=== PATIENT | female | born 1950 | race Caucasian/White ===

== ENCOUNTER 2017-02-04 10:23 | Day surgery (SDC) | payer MEDICARE ==
[2017-02-04] MEDS ORDERED: INFLIXIMAB IVPB SCH ×2 (11:00)
[2017-02-04] MEDS ORDERED: SODIUM CHLORIDE IVPB SCH ×2 (11:00)
[2017-02-04] MEDS ORDERED: ADMIXTURE FEE IVPB SCH ×2 (11:00)
[2017-02-04] MEDS ORDERED: diphenhydrAMINE 25 MG CAP PO SCH (11:00)
[2017-02-04] MEDS ORDERED: Acetaminophen 500 MG TAB PO SCH (11:00)
[2017-02-04 11:19] VITALS: TEMP 98.2
[2017-02-04] MEDS ORDERED: Sodium Chloride 0.9% 20 ML ONE (11:59)
[2017-02-04 14:02] VITALS: BP 136/63
== END 2017-02-04 14:46 | disposition home or self-care (01) ==
LOC: ONC/OP 10:23
PROVIDERS: ATTEND Internal Medicine Gastroenterology
DX: K51.90 Ulcerative colitis, unspecified, without complications (principal)
CPT/HCPCS: 96413; 96415; A4216; J1745; J7050

== ENCOUNTER 2017-04-22 10:55 | Day surgery (SDC) | payer MEDICARE ==
[2017-04-22] MEDS ORDERED: Sodium Chloride 0.9% 20 ML ONE (11:07)
[2017-04-22] MEDS ORDERED: Sodium Chloride 0.9% 1,000 ML IV SCH (11:15)
[2017-04-22] MEDS ORDERED: diphenhydrAMINE 25 MG CAP PO SCH (11:15)
[2017-04-22] MEDS ORDERED: Acetaminophen 500 MG TAB PO SCH (11:15)
[2017-04-22] MEDS ORDERED: diphenhydrAMINE 50 MG/ML VIAL IVP PRN (11:17)
[2017-04-22] MEDS ORDERED: Acetaminophen 500 MG TAB PO PRN (11:18)
[2017-04-22] MEDS ORDERED: SODIUM CHLORIDE IVPB SCH (11:30)
[2017-04-22] MEDS ORDERED: INFLIXIMAB IVPB SCH (11:30)
[2017-04-22] MEDS ORDERED: ADMIXTURE FEE IVPB SCH (11:30)
== END 2017-04-22 15:34 | disposition home or self-care (01) ==
LOC: ONC/OP 10:55
PROVIDERS: ATTEND Internal Medicine Gastroenterology
DX: K51.90 Ulcerative colitis, unspecified, without complications (principal); E11.9 Type 2 diabetes mellitus without complications
CPT/HCPCS: 96413; 96415; A4216; J1745; J7050

== ENCOUNTER 2017-06-24 10:35 | Day surgery (SDC) | payer MEDICARE ==
[2017-06-24] MEDS ORDERED: Acetaminophen 500 MG TAB PO PRN (10:49)
[2017-06-24] MEDS ORDERED: diphenhydrAMINE 50 MG/ML VIAL IVP PRN (10:50)
[2017-06-24] MEDS ORDERED: Sodium Chloride 0.9% 30 ML ONE (10:53)
[2017-06-24] MEDS ORDERED: diphenhydrAMINE 25 MG CAP PO SCH (11:00)
[2017-06-24] MEDS ORDERED: Acetaminophen 500 MG TAB PO SCH (11:00)
[2017-06-24] MEDS ORDERED: Sodium Chloride 0.9% 1,000 ML IV SCH (11:00)
[2017-06-24] MEDS ORDERED: SODIUM CHLORIDE 0.9% IVPB SCH (11:15)
[2017-06-24] MEDS ORDERED: INFLIXIMAB IVPB SCH (11:15)
[2017-06-24 11:36] VITALS: BP 134/62; TEMP 98.7
== END 2017-06-24 14:03 | disposition home or self-care (01) ==
LOC: ONC/OP 10:35
PROVIDERS: ATTEND Internal Medicine Gastroenterology
DX: K51.90 Ulcerative colitis, unspecified, without complications (principal); E11.9 Type 2 diabetes mellitus without complications; F32.9 Major depressive disorder, single episode, unspecified; K21.9 Gastro-esophageal reflux disease without esophagitis; Z98.890 Other specified postprocedural states
CPT/HCPCS: 96413; 96415; A4216; J1745; J7050

== ENCOUNTER 2017-08-19 10:20 | Day surgery (SDC) | payer MEDICARE ==
[2017-08-19] MEDS ORDERED: Acetaminophen 500 MG TAB PO PRN (10:50)
[2017-08-19] MEDS ORDERED: diphenhydrAMINE 50 MG/ML VIAL IVP PRN (10:50)
[2017-08-19] MEDS ORDERED: diphenhydrAMINE 50 MG/ML VIAL IVP SCH (11:00)
[2017-08-19] MEDS ORDERED: Sodium Chloride 0.9% 1,000 ML IV SCH (11:00)
[2017-08-19] MEDS ORDERED: Acetaminophen 500 MG TAB PO SCH (11:00)
[2017-08-19] MEDS ORDERED: INFLIXIMAB IVPB SCH ×2 (11:00→11:15)
[2017-08-19] MEDS ORDERED: SODIUM CHLORIDE 0.9% IVPB SCH ×2 (11:00→11:15)
[2017-08-19] MEDS ORDERED: diphenhydrAMINE 25 MG CAP PO SCH (11:00)
[2017-08-19 18:30] VITALS: BP 148/68; TEMP 97.9
[2017-08-19] MEDS ORDERED: Sodium Chloride 0.9% 40 ML ONE (18:57)
== END 2017-08-19 19:03 | disposition home or self-care (01) ==
LOC: ONC/OP 10:20
PROVIDERS: ATTEND Internal Medicine Gastroenterology
DX: K51.50 Left sided colitis without complications (principal)
CPT/HCPCS: 96413; 96415; A4216; J1745; J7050

== ENCOUNTER 2017-10-10 10:34 | Day surgery (SDC) | payer MEDICARE ==
[2017-10-10] MEDS ORDERED: diphenhydrAMINE 50 MG/ML VIAL IVP PRN (10:50)
[2017-10-10] MEDS ORDERED: Acetaminophen 500 MG TAB PO PRN (10:51)
[2017-10-10] MEDS ORDERED: Acetaminophen 500 MG TAB PO SCH (11:00)
[2017-10-10] MEDS ORDERED: diphenhydrAMINE 25 MG CAP PO SCH (11:00)
[2017-10-10] MEDS ORDERED: diphenhydrAMINE 50 MG/ML VIAL IVP SCH (11:00)
[2017-10-10] MEDS ORDERED: Sodium Chloride 0.9% 1,000 ML IV SCH (11:00)
[2017-10-10] MEDS ORDERED: INFLIXIMAB IVPB SCH (11:30)
[2017-10-10] MEDS ORDERED: SODIUM CHLORIDE 0.9% IVPB SCH (11:30)
[2017-10-10 13:51] VITALS: BP 145/62
== END 2017-10-10 14:30 | disposition home or self-care (01) ==
LOC: ONC/OP 10:34
PROVIDERS: ATTEND Internal Medicine Gastroenterology
DX: K51.50 Left sided colitis without complications (principal)
CPT/HCPCS: 96413; 96415; J1745; J7050

== ENCOUNTER → 2017-12-05 | Day surgery (SDC) | payer MEDICARE ==
[~2017-12-05] MED LIST: Acetaminophen 500 MG TAB PO PRN; Acetaminophen 500 MG TAB PO SCH; INFLIXIMAB IVPB SCH; SODIUM CHLORIDE 0.9% IVPB SCH; Sodium Chloride 0.9% 1,000 ML IV SCH; diphenhydrAMINE 25 MG CAP PO SCH; diphenhydrAMINE 50 MG/ML VIAL IVP PRN; diphenhydrAMINE 50 MG/ML VIAL IVP SCH
== END ==
LOC: ONC/OP 10:11
PROVIDERS: ATTEND Internal Medicine Gastroenterology
DX: K51.50 Left sided colitis without complications (principal); Z79.899 Other long term (current) drug therapy
CPT/HCPCS: 96413; 96415; J1745; J7050

== ENCOUNTER 2018-02-06 10:26 | Day surgery (SDC) | payer MEDICARE ==
[2018-02-06] MEDS ORDERED: Sodium Chloride 0.9% 20 ML ONE (10:56)
[2018-02-06] MEDS ORDERED: INFLIXIMAB IVPB SCH ×2 (11:00→11:15)
[2018-02-06] MEDS ORDERED: diphenhydrAMINE 25 MG CAP PO SCH (11:00)
[2018-02-06] MEDS ORDERED: Acetaminophen 500 MG TAB PO SCH (11:00)
[2018-02-06] MEDS ORDERED: SODIUM CHLORIDE 0.9% IVPB SCH ×2 (11:00→11:15)
[2018-02-06] MEDS ORDERED: Sodium Chloride 0.9% 500 ML IV SCH (11:00)
[2018-02-06 11:05] VITALS: BP 137/62; TEMP 97.8
== END 2018-02-06 14:07 | disposition home or self-care (01) ==
LOC: ONC/OP 10:26
PROVIDERS: ATTEND Internal Medicine Gastroenterology
DX: K51.90 Ulcerative colitis, unspecified, without complications (principal)
CPT/HCPCS: 96413; 96415; J1745; J7050

== ENCOUNTER 2018-05-05 00:09 | Day surgery (SDC) | payer MEDICARE ==
[2018-05-05] MEDS ORDERED: diphenhydrAMINE 50 MG/ML VIAL IVP PRN (05:59)
[2018-05-05] MEDS ORDERED: Acetaminophen 500 MG TAB PO PRN (06:00)
[2018-05-05] MEDS ORDERED: SODIUM CHLORIDE 0.9% IVPB SCH (06:00)
[2018-05-05] MEDS ORDERED: Acetaminophen 500 MG TAB PO SCH (06:00)
[2018-05-05] MEDS ORDERED: Sodium Chloride 0.9% 1,000 ML IV SCH (06:00)
[2018-05-05] MEDS ORDERED: diphenhydrAMINE 25 MG CAP PO SCH (06:00)
[2018-05-05] MEDS ORDERED: INFLIXIMAB IVPB SCH (06:00)
[2018-05-05] MEDS ORDERED: Sodium Chloride 0.9% 20 ML ONE (10:09)
== END 2018-05-05 13:38 | disposition home or self-care (01) ==
LOC: ONC/OP 00:09
PROVIDERS: ATTEND Internal Medicine Gastroenterology
DX: K51.90 Ulcerative colitis, unspecified, without complications (principal)
CPT/HCPCS: 96413; 96415; J1745; J7050; Q0163

== ENCOUNTER 2018-07-05 10:34 | Day surgery (SDC) | payer MEDICARE ==
[2018-07-05] MEDS ORDERED: Sodium Chloride 0.9% 20 ML ONE (10:46)
[2018-07-05 11:18] VITALS: BP 119/56; TEMP 98.8
== END 2018-07-05 14:45 | disposition home or self-care (01) ==
LOC: ONC/OP 10:34
PROVIDERS: ATTEND Internal Medicine Gastroenterology
DX: K51.90 Ulcerative colitis, unspecified, without complications (principal)
CPT/HCPCS: 96413; 96415; J1745; J7050; Q0163

== ENCOUNTER 2018-08-28 10:22 | Day surgery (SDC) | payer MEDICARE | END 2018-08-28 16:12 | disposition home or self-care (01) | LOC: ONC/OP 10:22 | PROVIDERS: ATTEND Internal Medicine Gastroenterology | DX: K51.90 Ulcerative colitis, unspecified, without complications (principal) | CPT/HCPCS: J1745; J7050 ==

== ENCOUNTER 2018-09-18 10:15 | Day surgery (SDC) | payer MEDICARE ==
[2018-09-18 14:31] VITALS: BP 105/68; TEMP 98.1
== END 2018-09-18 14:31 | disposition home or self-care (01) ==
LOC: ONC/OP 10:15
PROVIDERS: ATTEND Internal Medicine Gastroenterology
DX: K51.90 Ulcerative colitis, unspecified, without complications (principal)
CPT/HCPCS: 96413; 96415; J1745; J7050; Q0163

== ENCOUNTER 2018-11-06 10:20 | Day surgery (SDC) | payer MEDICARE ==
[2018-11-06] MEDS ORDERED: diphenhydrAMINE 50 MG/ML VIAL IVP PRN (10:30)
[2018-11-06] MEDS ORDERED: diphenhydrAMINE 25 MG CAP PO SCH (10:30)
[2018-11-06] MEDS ORDERED: diphenhydrAMINE 50 MG/ML VIAL IVP SCH (10:30)
[2018-11-06] MEDS ORDERED: Acetaminophen 500 MG TAB PO PRN (10:30)
[2018-11-06] MEDS ORDERED: Sodium Chloride 0.9% 1,000 ML IV SCH (10:30)
[2018-11-06] MEDS ORDERED: Acetaminophen 500 MG TAB PO SCH (10:30)
[2018-11-06] MEDS ORDERED: Sodium Chloride 0.9% 30 ML ONE (10:35)
[2018-11-06] MEDS ORDERED: SODIUM CHLORIDE 0.9% IVPB SCH (10:45)
[2018-11-06] MEDS ORDERED: INFLIXIMAB IVPB SCH (10:45)
[2018-11-06 12:09] VITALS: BP 150/66; TEMP 97.7
== END 2018-11-06 16:06 | disposition home or self-care (01) ==
LOC: ONC/OP 10:20
PROVIDERS: ATTEND Internal Medicine Gastroenterology
DX: K51.90 Ulcerative colitis, unspecified, without complications (principal); Z79.4 Long term (current) use of insulin; Z79.899 Other long term (current) drug therapy
CPT/HCPCS: 96413; 96415; J1745; J7050; Q0163

== ENCOUNTER 2019-01-19 10:32 | Day surgery (SDC) | payer MEDICARE ==
[~2019-01-19 10:32] MED LIST changes: -diphenhydrAMINE 50 MG/ML VIAL IVP PRN
[2019-01-19 13:48] VITALS: BP 157/74; TEMP 97.6
== END 2019-01-19 13:48 | disposition home or self-care (01) ==
LOC: ONC/OP 10:32
PROVIDERS: ATTEND Internal Medicine Gastroenterology
DX: K51.90 Ulcerative colitis, unspecified, without complications (principal)
CPT/HCPCS: 99211; G0463

== ENCOUNTER 2019-01-25 10:43 | Day surgery (SDC) | payer MEDICARE ==
[2019-01-25] MEDS ORDERED: Sodium Chloride 0.9% 20 ML ONE (10:50)
[2019-01-25] MEDS ORDERED: Sodium Chloride 0.9% 30 ML ONE (12:01)
[2019-01-25 12:07] VITALS: BP 133/61; TEMP 98.5
== END 2019-01-25 15:05 | disposition home or self-care (01) ==
LOC: ONC/OP 10:43
PROVIDERS: ATTEND Internal Medicine Gastroenterology
DX: K51.90 Ulcerative colitis, unspecified, without complications (principal)
CPT/HCPCS: 96413; 96415; 99211; G0463; J1745; J7050; Q0163

== ENCOUNTER 2022-09-27 12:12 | Outpatient (CLI) | payer OTHER | END 2022-09-27 12:13 | disposition home or self-care (01) | LOC: RAD 12:12 | PROVIDERS: ATTEND Internal Medicine Gastroenterology | DX: M25.562 Pain in left knee (principal); K51.90 Ulcerative colitis, unspecified, without complications; R68.2 Dry mouth, unspecified; R74.8 Abnormal levels of other serum enzymes ==